=== PATIENT | male | born 1995 | race Two or more races ===

== ENCOUNTER 2018-12-21 09:05 | Emergency (ER) | payer OTHER, SELFPAY ==
[2018-12-21] MEDS ORDERED: Iopamidol 370 76% 100 ML VIAL ONE (09:13)
[2018-12-21] MEDS ORDERED: Sodium Chloride 0.9% 1,000 ML ONE ×2 (09:35→11:10)
[2018-12-21] MEDS ORDERED: Ondansetron PF 4 MG/2 ML Vial ONE ×2 (09:35→12:02)
[2018-12-21] MEDS ORDERED: Ketorolac Tromethamine 30 MG/ML VIAL ONE (09:35)
[2018-12-21 10:08] LABS: Band 12 % (5-11); Eosinophils 1 % (0-10); Hemoglobin 14.8 g/dL (14.0-18.0); Lymphocytes 4 % (21-51); MDiff Complete? YES; Mean Corpuscular HGB CONC 34.3 g/dL (32.0-36.0); Mean Corpuscular Hemoglobin 32.4 pg (27.0-31.0); Mean Corpuscular Volume 94.7 fL (78.0-98.0); Mean Platelet Volume 7.9 fL (7.4-10.4); Monocytes 3 % (0-10); Neutrophil 80 % (42-75); Platelet Count 208 thou/uL (130-400); Platelet Morphology Comment Appears Adequate; RBC Distribution Width 10.9 % (11.5-14.5); Red Blood Cell (RBC) Count 4.57 mill/uL (4.70-6.10); White Blood Cell (WBC) Count 18.3 thou/uL (4.8-10.8)
[2018-12-21 10:12] LABS: ALT (SGPT) 11 U/L (8-55); AST (SGOT) 17 U/L (5-34); Albumin 4.4 g/dL (3.5-5.0); Alkaline Phosphatase 76 U/L (40-150); Anion Gap 14 mmol/L (10-20); BUN (Urea Nitrogen) 9 mg/dL (8.9-20.6); Bilirubin, Total 2.2 mg/dL (0.2-1.2); Calc. Creatinine Clearance 0 mL/min (70-130); Calcium 8.8 mg/dL (7.8-10.44); Carbon Dioxide 21 mmol/L (22-29); Chloride 105 mmol/L (98-107); Estimated GFR-MDRD Greater than 90; Globulin 2.8 g/dL (2.4-3.5); Glucose 98 mg/dL (70-105); Lipase 6 U/L (8-78); Potassium 3.5 mmol/L (3.5-5.1); Protein, Total 7.2 g/dL (6.0-8.3); Sodium 136 mmol/L (136-145)
--- NOTE | 2018-12-21 11:02 | CT ---
CT ABDOMEN AND PELVIS WITH IV CONTRAST: HISTORY: 23-year-old male with periumbilical abdominal pain. FINDINGS: The lung bases are clear. The liver, spleen, pancreas, adrenal glands and kidneys are normal. No calc ified gallstones are seen. No free air, free fluid or lymphadenopathy seen in the abdomen or pelvis. No abnormally dilated fluid-filled appendix is seen. There is thickening of the blackburn of the cecum and ascending colon. IMPRESSION: Findings are suspicious for right sided colitis. Further evaluation with colonoscopy is r ecommended.
[2018-12-21] MEDS ORDERED: Meropenem 1 GM VIAL ONE (11:10)
[2018-12-21] MEDS ORDERED: Sodium Chloride 0.9% 100 ML ONE (11:10)
[2018-12-21 11:20] LABS: Bilirubin Negative (Negative); Blood, Urine Negative (Negative); Glucose, Urine (Dipstick) Negative (Negative); Leukocyte Negative (Negative); Nitrite Negative (Negative); Protein, Urine (Dipstick) Trace mg/dL (Neg-Trace); Urobilinogen 0.2 mg/dL (0.2-1.0)
[2018-12-21 11:24] LABS: Clarity Hazy (Clear)
[2018-12-21 11:25] LABS: pH, Urine Greater than 8.5 (5.0-9.0)
== END 2018-12-21 13:15 | disposition home or self-care (01) ==
LOC: MADERS 09:05
DX: A09 Infectious gastroenteritis and colitis, unspecified (principal); E86.0 Dehydration
CPT/HCPCS: 36415; 74177; 80053; 81003; 83605; 83690; 85025; 87040; 87804; 96361; 96365; 96375; 96376; J1885; J2185; J2405; J3490; J7050; Q9967